=== PATIENT | male | born 1965 | race Caucasian/White ===

== ENCOUNTER 2022-07-26 15:30 | Outpatient (RCR) | payer MEDICAID, SELFPAY | END 2022-08-23 09:22 | disposition home or self-care (01) | LOC: HO.OT 15:30 | PROVIDERS: PCP Internal Medicine; Visit Provider Physician Assistant | DX: S52.501D Unspecified fracture of the lower end of right radius, subsequent encounter for closed fracture with routine healing (principal) | CPT/HCPCS: 97110; 97165 ==

== ENCOUNTER 2024-11-06 12:25 | Outpatient (REF) | payer MEDICAID, SELFPAY ==
--- NOTE | ~2024-11-06 | XR_ITS ---
EXAMINATION: XR KNEE, LEFT CLINICAL INFORMATION: acute L knee pain and swelling COMPARISON: None available. TECHNIQUE: Four views of the left knee. FINDINGS: No fracture or joint effusion. Alignment is anatomic. Joint spaces are maintained. No abnormal soft tissue calcification. XR/XR knee LT 4V IMPRESSION: Unremarkable plain radiographs of the left knee. Electronically signed by: Rob Barraza MD 11/06/2024 02:13 PM [facility]
== END 2024-11-06 12:26 | disposition home or self-care (01) ==
LOC: HO.HHCX 12:25
PROVIDERS: Visit Provider Family Medicine
DX: M25.562 Pain in left knee (principal)
CPT/HCPCS: 73564

== ENCOUNTER 2024-12-11 07:49 | Outpatient (AMB) | payer OTHER, SELFPAY ==
--- OUTSIDE RECORDS SUMMARY | 2024-12-11 07:51 | XMS_ITS | Clinical Summary ---
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 May repeat dose once in 2 hours if no relief. Do not exceed 2 doses in 24 hours. 9 tablet 3 Active amLODIPine (Norvasc) 10 MG tablet Take 1 tablet (10 mg) by mouth in the morning. 90 tablet 3 3 Active naproxen (Naprosyn) 500 MG tablet Take 1 tablet (500 mg) by mouth if needed in the morning and at bedtime for mild pain. 30 tablet 1 4 11/06/20 25 Active acetaminophen (Tylenol 8 Hour) 650 MG ER tablet Take 1 tablet (650 mg) by mouth every 8 (eight) hours if needed for mild pain. Do not crush, chew, or split. 50 tablet 1 4 11/06/20 25 Active Diclofenac Sodium 1 % gel Apply 2 g topically if needed in the morning, at noon, in the evening, and at bedtime (pain). 150 g 3 4 Active traMADol (Ultram) 50 MG tabletIndicatio ns:Acute pain of left knee Take 1 tablet (50 mg) by mouth if needed in the morning, at noon, and at bedtime for severe pain for up to 5 days. 15 tablet 4 11/11/20 24 Active Problems Problem Noted Date Diagnosed Date BMI 27.0-27.9,adult 11/06/2024 Encounters Date Type Department Care Team Description 11/06/2024 10:45 AM EST Office Visit [facility] [address] [place] [address] Edie Torres DO Acute pain of left knee (Primary Dx) 11/06/2024 Telephone [facility] [address] [place] [address] [place] [facility] insurance 11/06/2024 Travel 11/06/2024 Telephone [facility] [address] [place] [address] [place] [facility] Nurse Triage from Last 3 Months Immunizations Name Administration Dates Next Due Pfizer Covid-19 Vaccine 12+ 03/25/2021, 1 Td (adult), 5 Lf tetanus tox oid, preservative free, adsorbed 08/27/2017 Tdap 09/05/2022 Zoster, Recombinant 09/16/2021 Family History Medical History Relation Name Comments Cancer Brother Diabetes type II Father Heart disease Father Diabetes type II Mother Relation Name Status Comments Brother Father Mother Social History Tobacco Use Types Packs/Day Years Used Date Smoking Tobacco: Former Cigarettes Q uit: 1997 Smokeless Tobacco: Never Tobacco Cessation:Counseling Given: Not Answered Comments:Quit smoking 25 years ago - smoked 1/4 pack daily x 15 years Alcohol Use Standard Drinks/Week Comments Not Asked 1 (1 standard drink = 0.6 oz pure alcohol) last drink approximately 25 years ago Depression Answer Date Recorded Patient Health Questionnaire-9 Score 2 05/10/2023 Housing Stability Answer Date Recorded What is your housing situation today? I have tj harris 09/25/[address] you li ve. Do you have problems with any of the following? None of the above 09/25/2023 Food Insecurity Answer Date Recorded Within the past 12 months, y ou worried that your food would run out before you got money to buy more: Never True 09/25/2023 Within the past 12 months,th e food you bought just didn't last and you didn't have enough money to get more: Never True 04/2023 Transportation Answer Date Recorded In the past 12 months, has l ack of transportation kept you from medical appts, meetings, work or from getting things needed for daily living? No 09/25/2023 Utilities Answer Date Recorded In the past 12 months, has t he electric, gas, oil or water company threatened to shut off services in your home? No 09/25/2023 Depression Answer Date Recorded Patient Health Questionnaire-2 Score 0 05/10/2023 Sex and Gender Information Value Date Recorded Sex Assigned at Male 09/19/2022 10:39 AM EDT Legal Sex Male 10:39 AM EDT Gender Identity Male 09/19/2022 10:39 AM EDT Sexual Orientation Straight 09/19/2022 10 :39 AM EDT Last Filed Vital Signs Vital Sign Reading Time Taken Comments Blood Pressure 140/80 11/06/2024 11:18 AM EST Pulse 72 11/06/2024 11:18 AM EST Temperature 36.6 ??C (97.8 ??F) 11/06/2024 11:[address] Respiratory Rate 20 11/06/2024 11:18 AM EST Oxygen Saturation 97% 05/10/2023 9:23 AM EDT Inhaled Oxygen Concentration - - Weight 88.9 kg (196 lb 1 oz) 11/06/2024 11:18 AM EST Height 180.3 cm (5' 11 ) 11/06/2024 11:18 AM EST Body Mass Index 27.35 11/06/2024 11:18 AM EST Plan of Treatment Health Maintenance Due Date Last Done Comments CT Colonography 1967 Colonoscopy 1967 Colorectal Cancer Screening 1967 FIT DNA/Cologuard 1967 FIT 1967 FOBT 1967 Sigmoidoscopy 1967 Alcohol/Substance Use Screening 1979 Hepatitis B Vaccines (1 of 3 - 19+ 3-dose series) 1986 Zoster Vaccines (2 of 2) 11/11/2021 09/16/2021 Depression Screening 05/10/2024 05/10/2023, 05/10/2023 SDOH Screening 05/10/2024 05/10/2023 COVID-19 Vaccine (3 - 2023-2 5 season) 2024 03/25/2021, 03/04/2021 Influenza Vaccine (#1) 2024 Tobacco Screening 11/06/2025 11/06/2024 Lipid Panel 05/10/2028 05/10/2023, 09/22/2021 DTaP/Tdap/Td Vaccines (2 - T d or Tdap) 09/05/2032 09/05/2022, 08/27/2017 RSV Patients and Patients Aged 60 years or older (1 - 1-dose 75+ series) 2042 Hepatitis C Screening Completed 09/22/2021 HIV Screening Completed 05/10/2023 HIB Vaccines Aged Out No longer eligi ble based on patient's age to complete this topic HPV Vaccines Aged Out No longer eligi ble based on patient's age to complete this topic Hepatitis A Vaccines Aged Out No long er eligible based on patient's age to complete this topic IPV Vaccines Aged Out No longer eligi ble based on patient's age to complete this topic Meningococcal Vaccine Aged Out No fabio sabrina eligible based on patient's age to complete this topic Pneumococcal Vaccine: Pediatrics (0 to 5 Years) and At-Risk Patients (6 to 64 Years) Aged Out No longer eligible b ased on patient's age to complete this topic RSV under 20 months Aged Out No longe r eligible based on patient's age to complete this topic Rotavirus Vaccines Aged Out No longer eligible based on patient's age to complete this topic Procedures Procedure Name Priority Date/Time Associated Diagnosis Comments XR KNEE 4+ VIEWS LEFT Routine 11/06/2024 12:25 PM EST Acute pain of left knee HIV 1 RNA, QN PCR W/RFL REHANA (RTI,PI,INTEGRASE) Routine 05/10/2023 10:07 AM EDT Screening examination for STD (sexually transmitted disease) LIPID PANEL, STANDARD Routine 05/10/2023 10:07 AM EDT Routine adult health maintenance ZZZ HISTORICAL HEPATITIS C AB W/REFL TO HCV RNA, QN, PCR Routine 09/22/2021 8:45 AM EDT from Last 3 Months or Most Recently Relevant to Health Maintenance Results * XR Knee 4+ Views Left (11/06/2024 12:25 PM EST) Anatomical Region Laterality Modality Lower Extremities, Knee Left Radiogra phic Imaging 11/06/2024 12:2 5 PM EST Narrative 11/06/2024 2:15 PM EST ?[facility] ?[address] ?[place] [address] ?XRay Report ? Signed ? Patient: Jarod Ortez ?MR#: M ?? [id number] ? : 1965 ?Acct:[id number] ? Age/Sex: 59 / M ?ADM Date: 11/06/24 ? Loc: HO.HHCX ? Attending Dr: Edie Torres DO ? Ordering Physician: Edie Torres DO ?? Date of Service: 11/06/24 ?? Procedure(s): XR knee LT 4V ?? Accession Number(s): [id number] ? cc: Edie Torres DO ? EXAMINATION: ?? XR KNEE, LEFT ? CLINICAL INFORMATION: ?? acute L knee pain and swelling ? COMPARISON: ?? None available. ? TECHNIQUE: ?? Four views of the left knee. ? FINDINGS: ?? No fracture or joint effusion. Alignment is anatomic. Joint spaces are ?? maintained. No abnormal soft tissue calcification. ? XR/XR knee LT 4V ?? IMPRESSION: ?? Unremarkable plain radiographs of the left knee. ? Electronically signed by: ??Rbo Barraza MD ??11/06/2024 02:13 PM EST RP ? Dictated By: ?Rob Barraza MD ? Signed By: ?<Electronically signed by Rob Barraza MD in OV> ?11/06/24 1413 ? DD/ 1225 ? TD/TT: 11/06/24 1230 ? Lead Architect: ? Procedure Arthur Ott - 11/06/[address] [address] XRay Report Signed Patient: Jarod Ortez [facility]#: M [id number] : 1965Acct:[id number] Age/Sex: 59 / MADM Date: 11/06/24 Loc: HO.HHCX Attending Dr: Edie Torres DO Ordering Physician: Edie Torres DO Date of Service: 11/06/24 Procedure(s): XR knee LT 4V Accession Number(s): [id number] cc: Edie Torres DO EXAMINATION: XR KNEE, LEFT CLINICAL INFORMATION: acute L knee pain and swelling COMPARISON: None available. TECHNIQUE: Four views of the left knee. FINDINGS: No fracture or joint effusion. Alignment is anatomic. Joint spaces are maintained. No abnormal soft tissue calcification. XR/XR knee LT 4V IMPRESSION: Unremarkable plain radiographs of the left knee. Electronically signed by: Rob Barraza MD 11/06/2024 02:13 PM [facility] Dictated By: Rob Barraza MD Signed By: <Electronically signed by Rob Barraza MD in OV> 11/06/24 1413 DD/ 1225 TD/TT: 11/06/24 1230 Lead Architect: Edie Torres DO IMG XR PROCEDURES Edited Res ult - Final * HIV-1 RNA, Quantitative, Real-Time PCR with Reflex to Genotype (RTI, PI, Integrase) (05/10/2023 10:07 AM EDT) Pathologist [facility] [place] HIV 1 RNA, QN PCR NOT DETECTED copies/mL [facility] [place] [facility], HIV 1 RNA, QN PCR NOT DETECTED Log copies/mL [facility], Comment: REFERENCE RANGE: NOT DETECTED copies/mL ?NOT DETECTED ??Log copies/mL This test was performed using Real-Time Polymerase Chain Reaction. Reportable range is 20 to 10,000,000 copies/mL (1.30-7.00 Log copies/mL). 05/10/2023 10:0 7 AM EDT 05/10/2023 10:07 AM EDT Narrative [facility] - 05/14/2023 1:52 AM EDT FASTING:UNKNOWN FASTING: UNKNOWN Result [facility] LAB BLOOD ORDERABLES Final Resu lt [place] [address] [facility] [place], [place] [address] [employer], [address] [place] [address] * Lipid Panel, Standard (05/10/2023 10:07 AM EDT) [facility] Cholesterol, Total 151 <200 mg/dL [employer] [place] [facility] HDL Cholesterol 42 > OR = 40 mg/dL [employer] [place] [facility] Triglycerides 103 <150 mg/dL [employer] [place] [facility] LDL Cholesterol 89 mg/dL (calc) [employer] [place] [facility] Comment: Reference range: <100 Desirable range <100 mg/dL for primary prevention; ?? <70 mg/dL for patients with CHD or diabetic patients with > or = 2 CHD risk factors. LDL-C is now calculated using the Rohit-Fidencio calculation, which is a validated novel method providing better accuracy than the Friedewald equation in the estimation of LDL-C. Rohit SS et al. SHANA. 2013;310(19): 6087-7739 (http://education.Allclasses/faq/BEQ049) Chol/HDLC Ratio 3.6 <5.0 (calc) [employer] [place] [facility] Non-HDL Cholesterol 109 <130 mg/dL (calc) [employer] [place] [facility] Comment: For patients with diabetes plus 1 major ASCVD risk factor, treating to a non-HDL-C goal of <100 mg/dL (LDL-C of <70 mg/dL) is considered a therapeutic option. Blood Venous blood specimen / Unknown 05/10/2023 10:07 AM EDT 05/10/2023 10:07 AM EDT Narrative [facility] - 05/14/2023 1:52 AM EDT FASTING:UNKNOWN FASTING: UNKNOWN Result [facility] BLOOD ORDERABLES Final Resu lt [facility] [address] [facility] [place], [place] [address] [employer] [facility] [address] [place] [address] * HEPATITIS C AB W/REFL TO HCV RNA, QN, PCR (09/22/2021 8:45 AM EDT) HEPATITIS C ANTIBODY NON-REACT BALDEV NON-REACT BALDEV [facility] INDEX 0.02 <1.00 [facility] Comment: ?? HCV antibody was non-reactive. There is no laboratory ?? evidence of HCV infection. ?? In most cases, no further action is required. However, if recent HCV exposure is suspected, a test for HCV RNA (test code 38436) is suggested. ?? For additional information please refer to http://education.[employer].com/faq/LLA06s8 (This link is being provided for informational/ educational purposes only.) ?? 09/22/2021 8:45 AM EDT us Mirtha Mcgrath MD HISTORICAL/NON ORDERABLE LAB S Final Result [facility] [address] from Last 3 Months or Most Recently Relevant to Health Maintenance Insurance N [employer] [facility] Care Teams Mixed Signal Design Engineer Relationship Specialty Start Date End Date Vinita Santamaria FNP [address] [place] [phone] PCP - General Family Medicine 07/23/24
--- NOTE | 2024-12-11 08:26 | MHC.OFFVIS ---
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 Patient reports his pain has been present for about 2 months. He states he was working going down the stairs when he slipped causing him to step wrong. Denies fall. His pain is located at the medial aspect of knee. His pain increases with prolong walking and getting up from a sitting position. Finds no relief with ibuprofen or tramadol that his PCP prescribed him. No other tx. 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 He states about 2 months ago he was walking down the stairs when he stepped wrong and felt left knee pain. Since this incident, he states the pain is constant, he has pain with walking and burning when he sits. He states when he turns he does feel as though his knee will give out and the pain radiates toward the back of the knee. 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 Tenderness along the medial joint line. ROM full with crepitus. Positive steinmans. No ligamentous laxity. NVI. Office Procedures AMB Joint Injection/Aspiration Joint Injection/Aspiration Primary Site: left knee Prep: site was prepped using aseptic technique, ethochloride spray was applied and injection warnings given Injected: 80 mg of, DepoMedrol, with 8 mL of, 1% plain lidocaine and in the joint Approach Used: anterolateral Procedure: The patient tolerated the procedure well and there was some relief with the local anesthesia Coding 88168 - Glenohumeral/Tronchanteric Bursa/Intraarticular Procedure code (CPT) selection complete Results Reviewed Results Reviewed: X-rays of the left knee obtained in the office today and reviewed by me show very mild arthritis, otherwise no evidence fracture or dislocations. Assessment & Plan Assessment & Plan (1) Injury of meniscus of left knee: Code(s): S83.8X2A - Sprain of other specified parts of left knee, initial encounter Category: Medical Plan: We discussed options today which includes steroid injection in the left knee to see if this helps resolve his symptoms. I also ordered physical therapy to work on strengthening exercises. If symptoms persist over the next 6 weeks where he has locking catching or buckling he will contact our office and we can order an MRI of the left knee otherwise he will follow up as needed. Orders: Orders XR knee RT 3V Today M17.11 - Unilateral primary osteoarthritis, right knee PT Evaluation and Treatment Today S83.8X2A - Sprain of other specified parts of left knee, initial encounter Coding Level of Care Code New Pt Level 3 (56626) Complex EM visit Add On G2211 Diagnoses Injury of meniscus of left knee S83.8X2A CPT Codes Coding - Joint 7: 64525 - Glenohumeral/Tronchanteric Bursa/Intraarticular ([id number])
== END 2024-12-11 09:18 | disposition home or self-care (01) ==
PROVIDERS: PCP Family Medicine; Visit Provider Physician Assistant
DX: S83.8X2A Sprain of other specified parts of left knee, initial encounter (principal)
CPT/HCPCS: 20610; 99203

== ENCOUNTER 2024-12-11 10:58 | Outpatient (REF) | payer OTHER, SELFPAY ==
--- NOTE | ~2024-12-11 | XR_ITS ---
CLINICAL HISTORY: M25.562 - Pain in left knee Exam: AP standing view of the bilateral knees. Comparison: None. Findings: Left knee: Mild lateral position of the patella in relation to the distal femur. Alignment is otherwise anatomic and single AP view. Minimal to mild degenerative change of the medial and lateral compartments. Right knee: Bony alignment appears anatomic on single AP view. Joint spaces are well preserved. Impression: Findings suggest lateral positioning of the patella in relation to the femur on the left knee. This document has been electronically signed by: Giuliano Jacob MD on 12/13/2024 09:30:16
--- OUTSIDE RECORDS SUMMARY | 2024-12-13 13:04 | XMS_ITS | Clinical Summary ---
Author Organization [employer] Address [address] [facility] [address] [place] [address] Care Team Providers Care Landscape And Yardwork Laborer Name Role Phone Vinita Santamaria [facility] Primary Care Provider [phone] Allergies No known active allergies Medications SUMAtriptan [...] bedtime (pain). 150 g 3 4 Active Active Problems Problem Noted Date Diagnosed Date BMI 27.0-27.9,adult 11/06/2024 Encounters Date Type Department Care Team Description 11/06/2024 10:45 AM EST Office Visit [facility] [address] [place] [phone] Edie Torres, Acute pain of left knee (Primary Dx) 11/06/2024 Telephone [facility] [address] [place] [address] [place] [facility] insurance 11/06/2024 Travel 11/06/2024 Telephone [facility] [address] [place] [address] [place] [facility] Nurse Triage from Last 3 Months Immunizations [...] is your housing situation today? I have tjdafne harris 09/25/[address] you [...] 10:07 AM EDT Routine adult health maintenance [facility] HISTORICAL HEPATITIS C AB W/REFL TO HCV RNA, QN, PCR Routine 09/22/2021 8:45 AM EDT from Last 3 Months or Most Recently Relevant to Health Maintenance Results * XR Knee 4+ Views Left (11/06/2024 12:25 PM EST) Anatomical Region Laterality Modality Lower Extremities, Knee Left [facility] 11/06/2024 12:2 5 PM EST Narrative 11/06/2024 2:15 PM EST ?[facility] ?[address] ?[place] [address] ?XRay Report ? Signed ? Patient: Jarod Ortez ?MR#: M ?? [id number] ? : 1965 ?Acct:[id number] ? Age/Sex: 59 / M ?ADM Date: 11/06/24 ? Loc: HO.HHCX ? Attending Dr: Edie Torres DO ? Ordering Physician: Edie Torres DO ?? Date of Service: 11/06/24 ?? Procedure(s): XR knee LT 4V ?? Accession Number(s): [id number] ? cc: Edie Torres DO ? EXAMINATION: [...] the left knee. ? Electronically signed by: ??Rob Barraza MD ??11/06/2024 02:13 PM EST RP ? Dictated By: ?Rob Barraza MD ? Signed By: ?<Electronically signed by Rob Barraza MD in OV> ?11/06/24 1413 ? DD/ 1225 ? TD/TT: 11/06/24 1230 ? Outside Sales Professional: ? Procedure Note Arthur Church - 11/06/[address] [address] XRay Report Signed Patient: Jarod Ortez AMR#: M [id number] : 1965Acct:[id number] Age/Sex: 59 / MADM Date: 11/06/24 Loc: HO.HHCX Attending Dr: Edie Torres DO Ordering Physician: Edie Torres DO Date of Service: 11/06/24 Procedure(s): XR knee LT 4V Accession Number(s): [id number] cc: Edie Torres DO EXAMINATION: XR KNEE, [...] by: Rob Barraza MD 11/06/2024 02:13 PM [facility] Dictated By: Rob Barraza MD Signed By: <Electronically signed by Rob Barraza MD in OV> 11/06/24 1413 DD/ 1225 TD/TT: 11/06/24 1230 Outside Sales Professional: Edie Torres DO IMG XR PROCEDURES Edited Res ult - Final * HIV-1 RNA, Quantitative, Real-Time PCR with Reflex to Genotype (RTI, PI, Integrase) (05/10/2023 10:07 AM EDT) Pathologist [facility] HIV 1 RNA, QN PCR NOT DETECTED copies/mL [facility], HIV 1 RNA, QN PCR NOT DETECTED Log copies/mL [facility], Comment: REFERENCE RANGE: NOT DETECTED copies/mL ?NOT DETECTED ??Log copies/mL This test was performed using Real-Time Polymerase Chain Reaction. Reportable range is 20 to 10,000,000 copies/mL (1.30-7.00 Log copies/mL). 05/10/2023 10:0 7 AM EDT 05/10/2023 10:07 AM EDT Narrative [facility] - 05/14/2023 1:52 AM EDT FASTING:UNKNOWN FASTING: UNKNOWN us Loree Clemons [facility] BLOOD ORDERABLES Final Resu lt [facility] [address], [place] [address] [facility], [address] [place] [address] * Lipid Panel, Standard (05/10/2023 10:07 AM EDT) Cholesterol, Total 151 <200 mg/dL [employer] [place] [employer] HDL Cholesterol 42 > OR = 40 mg/dL [employer] [place] [employer] Triglycerides 103 <150 mg/dL [employer] [place] [facility] LDL Cholesterol 89 mg/dL (calc) [employer] [place] [facility] Comment: Reference range: <100 Desirable range <100 mg/dL for primary prevention; ?? <70 mg/dL for patients with CHD or diabetic patients with > or = 2 CHD risk factors. LDL-C is now calculated using the Lokesh calculation, which is a validated novel method providing better accuracy than the Friedewald equation in the estimation of LDL-C. Rohit SS et al. SHANA. 2013;310(19): 4794-0227 (http://education.Storspeed/faq/KXY808) Chol/HDLC Ratio 3.6 <5.0 (calc) [employer] [place] [facility] Non-HDL Cholesterol 109 <130 mg/dL (calc) [employer] [place] [facility] Comment: For patients with diabetes plus 1 major ASCVD risk factor, treating to a non-HDL-C goal of <100 mg/dL (LDL-C of <70 mg/dL) is considered a therapeutic option. Blood Venous blood specimen / Unknown 05/10/2023 10:07 AM EDT 05/10/2023 10:07 AM EDT Narrative [facility] - 05/14/2023 1:52 AM EDT FASTING:UNKNOWN FASTING: UNKNOWN Loree Clemons [facility] LAB BLOOD ORDERABLES Final Resu lt [facility] [address], [place] [address] [employer] [place] [facility] [address] [place] [address] * HEPATITIS C AB W/REFL TO HCV RNA, QN, PCR (09/22/2021 8:45 AM EDT) HEPATITIS C ANTIBODY NON-REACT BALDEV NON-REACT BALDEV [facility] INDEX 0.02 <1.00 [facility] Comment: ?? HCV antibody was non-reactive. There is no laboratory ?? evidence of HCV infection. ?? In most cases, no further action is required. However, if recent HCV exposure is suspected, a test for HCV RNA (test code 43935) is suggested. ?? For additional information please refer to http://IndexTank.L4 Mobile/faq/XOM01e9 (This link is being provided for informational/ educational purposes only.) ?? 09/22/2021 8:45 AM EDT Mirtha Mcgrath MD HISTORICAL/NON ORDERABLE LAB S Final Result [facility] Anywhere [address] from Last 3 Months or Most Recently Relevant to Health Maintenance Insurance [facility] Care Teams Landscape And Yardwork Laborer Relationship Specialty Start Date End Date Vinita Santamaria FNP [address] [place] [id number] PCP - General Family Medicine 07/23/24
== END 2024-12-11 10:59 | disposition home or self-care (01) ==
LOC: HO.HOSX 10:58
PROVIDERS: Visit Provider Physician Assistant
DX: S83.8X2A Sprain of other specified parts of left knee, initial encounter (principal); M17.11 Unilateral primary osteoarthritis, right knee
CPT/HCPCS: 20610; 73565; 99202; J1010; J2003